=== PATIENT | female | born 1995 | race Caucasian/White ===

== ENCOUNTER 2016-10-07 03:21 | Emergency (ER) | payer OTHER ==
[2016-10-07 03:38] VITALS: BP 110/82
--- NOTE | 2016-10-07 04:03 | ERNOTE ---
Medical Problem HPI - Narrative Date of Service: 10/07/16 - General Chief Complaint: Chest Pain Time Seen by Provider: 10/07/16 03:49 Source: patient Exam Limitations: no limitations - Immun/Allergies/Home Medications Immunizations: IMMUNIZATION HX Immunizations Up to Date Yes History of Influenza Vaccine Yes Hx Pneumococcal Vaccination No Allergies/Adverse Reactions: Allergies amoxicillin trihydrate [From Augmentin] Allergy (Intermediate, Verified 03:39) Hives potassium clavula *RETIRED-04/26/13 [From Augmentin] Allergy (Intermediate, Verified 10/07/16 03:39) Hives Home Medications: HOME MEDICATIONS Acetaminophen [Tylenol] 1,000 mg PO 10/07/16 [Last Taken 10/07/16 00:00] Albuterol Sulfate [Proventil Hfa] 6.7 gm IH QID #1 [email or web address] 10/07/16 [Last Taken Unknown] Ibuprofen [Motrin] 800 mg PO 10/07/16 [Last Taken 10/07/16 00:00] - History of Present History Narrative: pt is a habitual marijuana user and smokes tobacco. Here for chest pains for one week. she had a pneumothorax two years ago. Has had a dry cough. Review of Systems - Review of Systems Constitutional: Present: no symptoms reported EYE: Present: no symptoms reported ENT: Present: no symptoms reported Respiratory: Present: See HPI Cardiology: Present: no symptoms reported Gastrointestinal/Abdominal: Present: no symptoms reported Genitourinary: Present: no symptoms reported Musculoskeletal: Present: no symptoms reported Skin: Present: no symptoms reported - Patient's Past Medical History Patient History - Medical: No pertinent hx, Anxiety, Depression Patient History - Cardiac/Respiratory: No pertinent hx Patient History - Cancer: No Hx of Cancer Patient History - Surgical Procedures: Pneumothorax - Social History Living Situations: home Smoking Status: Current every day smoker Alcohol Use: occasionally Drug Use: marijuana Physical Exam - Physical Exam General Appearance: Present: wd/wn, alert, no apparent distress - appears nervous Eye Exam: Normal inspection: bilateral, PERRL: bilateral, EOMI: bilateral Ears, Nose, Throat: Present: normal ENT inspection, hearing grossly normal Neck: Present: normal inspection, nontender, supple Respiratory: Present: no respiratory distress, normal breath sounds, no accessory muscle use, chest nontender, lungs clear Cardiovascular/Chest: Present: regular rate, rhythm, no murmur, normal peripheral pulses Neurological Exam: Present: alert, oriented - nervous ED Progress - Vital Signs Patient's Vital Signs:: I have reviewed the patient's vital signs. Vital Signs: Vital Signs 10/07/16 03:24 Temperature 36.5 C Pulse Rate 110 H Respiratory 20 Rate Blood Pressure 110/82 O2 Sat by Pulse 100 Oximetry - X-Ray X-Ray #1 X-Ray: chest - no pneumothorax noted - Progress/Reassessment Chief Complaint: Chest Pain Departure - Departure Clinical Impression: Cough Disposition: Home self-care Condition: Good Instructions: Cough, Pediatric Additional Instructions: STOP SMOKING POT AND CIGARETTES. Referrals: Velma Huitron MD [Primary Care Provider] - Prescriptions: Albuterol Sulfate [Proventil Hfa] 6.7 gm IH QID #1 [email or web address]
== END 2016-10-07 04:12 | disposition home or self-care (01) ==
LOC: ER 03:21
DX: R07.9 Chest pain, unspecified (principal); R05 Cough; F17.210 Nicotine dependence, cigarettes, uncomplicated

== ENCOUNTER 2016-12-01 11:40 | Emergency (ER) | payer OTHER ==
[2016-12-01 11:58] VITALS: BP 130/71
[2016-12-01] MEDS ORDERED: METOCLOPRAMIDE HCL 5 MG/ML VIAL IM ONE (12:11)
[2016-12-01] MEDS ORDERED: diphenhydrAMINE HCL 50 MG/ML VIAL IM ONE (12:11)
--- OUTSIDE RECORDS SUMMARY | 2016-12-01 12:19 | XMS REPORT | Continuity of Care Document ---
:1995 Demographics Address [address] [place] [address] Mobile Phone [phone] Preferred Language Unknown Marital Status Non- Druze Affiliation No Preference Race White Ethnic Group Non- Author Organization [facility] ([facility]) Address [address] [place] [address] Phone [phone] Care Team Providers Name Role Phone Velma Huitron Primary Care Provider [phone] Source Comments This disclosure is being made pursuant to the Care Everywhere program, applicable federal and state laws, and may not contain all informaitonavailable regarding this patient.[facility] ([facility]) Active Allergies and Adverse Reactions Allergen Noted Date Severity Reactions Comments Amoxicillin-Pot Clavulanate 12/16/2014 Urticaria (Hives) Current Medications Prescription Sig. Disp. Refills Start Date End Date Status acetaminophen 325 mg Take 2 Tabs by mouth 100 Tab 2 12/24/2014 Active tablet every 4 hours as needed. Indications: PAIN docusate 100 mg Take 1 Cap by mouth 60 Cap 2 12/24/2014 Active capsule 2 times daily. Indications: CONSTIPATION HYDROmorphone 2 mg Take 1-2 Tabs by 120 Tab 0 12/24/2014 Active tablet mouth every 3 hours as needed. Indications: PAIN sennosides 8.6 mg Take 1 Tab by mouth 60 Tab 2 12/24/2014 Active tablet 2 times daily. Indications: CONSTIPATION Active Problems Problem Noted Date History of pneumothorax 08/28/2016 Overview: spontaneous Smoking 08/28/2016 Overview: 12 PPD Request for sterilization 08/28/2016 Overview: Title XIX signed 08/28 Resolved Problems Problem Noted Date Resolved Date SOB (shortness of breath) 12/16/2014 08/28/2016 Spontaneous pneumothorax 12/16/2014 08/28/2016 Most Recent Encounters Date Type Specialty Providers Description 09/30/2016 Surgery Ambulatory Surgery Dajuan Pyle, Canceled SALPINGECTOMY, LAPAROSCOPIC 09/27/2016 Telephone Envelope Folder Jennyfer Mayer 09/27/2016 Anesthesia Event Ambulatory Surgery Madian Mann CRNA 09/05/2016 Office Visit Gynecology Dajuan Pyle, Chief Comp: Patient MD Reported Reason For Katya Leonard Visit Social History Tobacco Use Types Packs/Day Years Used Date Former Smoker Cigarettes 0.5 7 Quit: 12/11/2014 Tobacco Cessation:Counseling Given: Yes Comments: Alcohol Use Drinks/Week oz/Week Comments No Last Filed Vital Signs Vital Sign Reading Time Taken Blood Pressure 142/87 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 Pulse 93 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 Temperature 36.1 C (97 F) 01/11/2015 10:30 AM CDT Respiratory Rate 16 12/24/2014 9:54 AM CDT Height 1.676 m (5' 5.98") 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 Weight 57.7 kg (127 lb 3.3 oz) 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
[2016-12-01] MEDS ORDERED: diphenhydrAMINE HCL 50 MG/ML VIAL ONE (12:21)
[2016-12-01] MEDS ORDERED: METOCLOPRAMIDE HCL 5 MG/ML VIAL ONE (12:21)
--- NOTE | 2016-12-01 12:23 | ERNOTE ---
Head Injury HPI - Narrative Date of Service: 12/01/16 - General Time Seen by Provider: 12/01/16 11:59 - Immun/Allergies/Home Medications Immunization: IMMUNIZATION HX Immunizations Up to Date Yes History of Influenza Vaccine Yes Hx Pneumococcal Vaccination No Allergies/Adverse Reactions: Allergies Allergy/AdvReac Type Severity Reaction Status Date / Time amoxicillin trihydrate Allergy Intermediate Hives Verified 12/01/16 11:58 [From Augmentin] potassium clavula Allergy Intermediate Hives Verified 12/01/16 11:58 *RETIRED-04/26/13 [From Augmentin] Home Medications: HOME MEDICATIONS Acetaminophen [Tylenol] 1,000 mg PO Q6H 10/07/16 [Last Taken 10/07/16 00:00] Albuterol Sulfate [Proventil Hfa] 6.7 gm IH QID #1 [email or web address] 10/07/16 [Last Taken Unknown] Ibuprofen [Motrin] 800 mg PO Q6H 10/07/16 [Last Taken 10/07/16 00:00] - History of Present Illness Narrative: Pt. comes in after hitting her head on her metal stairs two hours ago. Pt. states that she has a headache and has a wound on her head that bled for 5 minutes after she washed her hair but resolved since. Pt. denies any SOB, CP, LOC, numbness, tingling, dizziness, blurred vision, double vision, vomiting, alleviating factors, or aggravating factors. Pt. states that she took Tylenol for her headache without relief. Review of Systems - Review of Systems Constitutional: Present: no symptoms reported. Absent: recent illness, fever, chills, fatigue, malaise EYE: Present: no symptoms reported ENT: Present: no symptoms reported Respiratory: Present: no symptoms reported. Absent: shortness of breath, cough , wheezing Cardiology: Present: no symptoms reported. Absent: chest pain, palpitations, edema Gastrointestinal/Abdominal: Present: nausea. Absent: vomiting, diarrhea, abdominal pain Genitourinary: Present: no symptoms reported Musculoskeletal: Present: no symptoms reported. Absent: back pain, neck pain, joint pain Skin: Present: other - abrasion top of head on R side Neurological: Present: headache. Absent: dizziness/light-headedness, weakness, numbness, tingling All Other Systems: All systems neg except as marked - Patient's Past Medical History Patient History - Medical: ADHD, Anxiety, Depression Patient History - Cardiac/Respiratory: No pertinent hx Patient History - Cancer: No Hx of Cancer Patient History - Surgical Procedures: Pneumothorax Patient History - Other: None - Social History Living Situations: home Abuse History: No History of abuse, Hx of Substance Use Psych History: Hx of Anxiety, Hx of Depression Smoking Status: Current every day smoker Have you smoked in the past 12 months: Yes Alcohol Use: occasionally Drug Use: marijuana - Immunizations Immunizations Up to Date: Yes Hx Pneumococcal Vaccination: No History of Influenza Vaccine: Yes Physical Exam - Physical Exam General Appearance: Present: wd/wn, alert, no apparent distress Eye Exam: Normal inspection: bilateral, PERRL: bilateral, EOMI: bilateral Ears, Nose, Throat: Present: normal ENT inspection Neck: Present: normal inspection, nontender. Absent: lymphadenopathy (R), lymphadenopathy (L), tender lateral, tender posterior midline Respiratory: Present: no respiratory distress, normal breath sounds, no accessory muscle use, chest nontender, lungs clear Cardiovascular/Chest: Present: regular rate, rhythm, no murmur, normal peripheral pulses Gastrointestinal/Abdominal: Present: normal bowel sounds, nontender, nondistended, soft, no organomegaly Back Exam: Present: normal inspection, normal range of motion, no vertebral tenderness Extremity Exam: Present: normal inspection, non-tender, normal range of motion, no edema Neurological Exam: Present: alert, oriented, normal mood/affect, no motor/ sensory deficits, behavioral health worker II-XII nml as tested, normal cerebellar test Skin Exam: Present: normal color, warm/dry, other - abrasion superficial closed 1cm in length x 0.3cm no active bleeding but with scab, no closure needed. Absent: pallor, skin rash ED Progress - Date and Time Seen: Date and Time: 12/01/16 12:14 Do not feel that imaging is necessary at this time as pt. had no LOC, has mild symptoms, denies any vomiting or vision changes at this time. - Vital Signs Patient's Vital Signs:: I have reviewed the patient's vital signs. Vital Signs: Vital Signs 12/01/16 11:54 Temperature 36.9 C Pulse Rate 91 Respiratory 12 Rate Blood Pressure 130/71 O2 Sat by Pulse 100 Oximetry - Progress/Reassessment Chief Complaint: Head Injury Departure Clinical Impression: Abrasion Head injury, acute Qualifiers: Encounter type: initial encounter Qualified Code(s): S09.90XA - Unspecified injury of head, initial encounter - Departure Disposition: Home self-care Condition: Good Instructions: Abrasion, [id number], Head Injury, Adult, Dung-ty-Wnor Additional Instructions: Please return to ER if you develop vomiting, dizziness, or weakness. Please follow up with primary provider in 2-3 days. Please apply neosporin to wound twice a day. Referrals: Velma Huitron MD [Primary Care Provider] -
== END 2016-12-01 12:28 | disposition home or self-care (01) ==
LOC: ER 11:40
DX: S00.91XA Abrasion of unspecified part of head, initial encounter (principal); X58.XXXA Exposure to other specified factors, initial encounter; Y92.009 Unspecified place in unspecified non-institutional (private) residence as the place of occurrence of the external cause; Y99.9 Unspecified external cause status; S09.90XA Unspecified injury of head, initial encounter; Z72.0 Tobacco use

== ENCOUNTER 2018-06-18 06:07 | Inpatient (IN) ==
[2018-06-18] MEDS ORDERED: DEXTROSE 5%-LACTATED RINGERS 1,000 ML IV PRN (06:21)
[2018-06-18] MEDS ORDERED: ONDANSETRON HCL/PF 2 MG/ML VIAL IV PRN ×2 (06:21→11:12)
[2018-06-18] MEDS ORDERED: RINGER'S SOLUTION,LACTATED 1,000 ML IV ONE (06:21)
[2018-06-18] MEDS ORDERED: OXYTOCIN 30 UNITS in NORMAL SALINE 500 ML IV ONE ×2 (06:21→13:33)
[2018-06-18] MEDS ORDERED: CLINDAMYCIN PHOSPHATE 900 MG in DEXTROSE 5 % IN WATER 100 ML IV SCH ×4 (06:41→14:21)
[2018-06-18 07:41] LABS: Cocaine Ur Negative (NEGATIVE); Urine Barbiturate Negative (NEGATIVE); Urine Benzodiazepines Negative (NEGATIVE); Urine Opiates Negative (NEGATIVE); Urine PCP Negative (NEGATIVE); Urine THC Negative (NEGATIVE)
--- NOTE | 2018-06-18 09:04 | HP ---
Chief Complaint - Chief Complaint Date of Service: 06/18/18 Time of Service: 09:04 Chief Complaint: Elective induction of labor History of Present Illness: 23 yo at 40wks presents for elective induction of labor. This complicated by bipoloar d/o, smoker, THC use, anemia, h/o preeclampsia. Rh positive Rubellla immune GBS positive. PCN allergy- Clindamycin receptive. Medical History (Last Reviewed 06/18/18 @ 10:08 by Wily Ying DO) Anger Anxiety Attention deficit disorder of adult with hyperactivity Onset Date: 12/31/12 Bipolar affective disorder, current episode depressed Body piercing Cough Onset Date: 09/23/12 Depression Hepatitis B Learning disability Scoliosis Tattoos Infection, kidney Anemia Onset Date: 10/15/12 Back spasm Onset Date: 03/27/17 Cervical dysplasia Onset Date: 06/12/15 Migraine Ovarian cyst Onset Date: ~2008 Pneumothorax Onset Date: 12/09/14 Pre-eclampsia Onset Date: 01/05/16 Family History: Family History (Last Reviewed 06/18/18 @ 10:09 by Wily Ying DO) Mother Arthritis COPD (chronic obstructive pulmonary disease) Depression Hypertension Grandmother Asthma COPD (chronic obstructive pulmonary disease) Diabetes Emphysema, unspecified Hypertension Parkinson disease Aunt Hypertension Lupus Parkinson disease Father Scoliosis Social History: Preferred Language Nepali Do you have any sabianism or No cultural preference? Abuse History No History of abuse,Hx of Substance Use Psych History Hx of Anxiety,Hx of Depression Review Of Systems (GEN) - Review of Systems Generalized/Overall Review: Present: No Symptoms Reported EENTM: Present: No Symptoms Reported Respiratory: Present: No Symptoms Reported Cardiac: Present: No Symptoms Reported Abdominal: Present: No Symptoms Reported Genitourinary: Present: Other - occassional contractions Musculoskeletal: Present: No Symptoms Reported Neurological: Present: No Symptoms Reported Skin: Present: No Symptoms Reported Endocrine: Present: No Symptoms Reported Immunizations: IMMUNIZATION HX Immunizations Up to Date Yes History of Influenza Vaccine Yes Hx Pneumococcal Vaccination No Allergies/Adverse Reactions: Allergies Allergy/AdvReac Type Severity Reaction Status Date / Time amoxicillin trihydrate Allergy Intermediate Hives Verified 06/16/18 09:46 [From Augmentin] potassium clavula Allergy Intermediate Hives Verified 06/16/18 09:46 *RETIRED-04/26/13 [From Augmentin] amoxicillin [From Augmentin] AdvReac Mild Hives Verified 06/16/18 09:46 clavulanic acid AdvReac Mild Hives Verified 06/16/18 09:46 [From Augmentin] Home Medications: HOME MEDICATIONS ferrous sulfate 325 mg (65 mg iron) tablet,delayed release 325 mg PO DAILY tab 03/25/18 [Last Taken 2 Days Ago ~06/16/18] vitamin,calcium,pduhjrob-fjpb-vbfvb acid tablet 1 tab PO DAILY [Last Taken 2 Days Ago ~06/16/18] Exam - Exam Vital Signs: Vital Signs - Last Taken Temp 36.9 C 06/18/18 07:15 Pulse 92 06/18/18 07:15 Resp 17 06/18/18 07:16 BP 124/79 06/18/18 07:15 Constitutional: Present: Alert, Oriented x3, Cooperative, No distress ENT Exam: Present: hearing grossly normal Respiratory: Present: lungs clear, no respiratory distress Cardiovascular/Chest: Present: normal peripheral pulses, regular rate, rhythm, no edema Abdomen: Present: soft, nontender, other - gravid /Rectal: Present: Other - cvx 3/50/-2 Extremity: Present: normal range of motion, non-tender, no pedal edema, no calf tenderness Skin Exam: Present: normal color, warm/dry, no cyanosis Lymphatic: Present: no adenopathy Neurologic: Present: alert, normal mood/affect, oriented x 3 Appearance: Present: appropriate appearance, appropriate insight Eye contact: Present: cooperative, good eye contact Thoughts: Present: normal thought pattern Diagnostic Studies: Laboratory Results Urine Opiates Screen Negative (NEGATIVE) 06/18/18 07:10 Barbiturate Screen Negative (NEGATIVE) 06/18/18 07:10 Ur Phencyclidine Scrn Negative (NEGATIVE) 06/18/18 07:10 Urine Amphetamine Negative (NEGATIVE) 06/18/18 07:10 U Benzodiazepines Scrn Negative (NEGATIVE) 06/18/18 07:10 Urine Cocaine Screen Negative (NEGATIVE) 06/18/18 07:10 Urine Marijuana (THC) Negative (NEGATIVE) 06/18/18 07:10 Assessment/Plan - Assessment/Plan (1) Elective induction of labor planned Assessment: Admit for pitocin induction of labor. Clindamycin per GBS protocol. Epidural PRN. Problem: Acute (2) GBS (group B Streptococcus carrier), +RV culture, currently Problem: Acute
--- NOTE | 2018-06-18 09:05 | PN ---
Progess Note - Interim Date: 06/18/18 Time: 09:04 Narrative: 06/18/18 09:04 Patient becoming more uncomfortable with contractions Vital signs stable. Pitocin at 3 mu/min. FHT: 140 baseline, reassuring Contractions q 2-3 min Cervix: 4/75/-2 Impression: Intrauterine at 40 weeks elective induction of labor. GBS positive carrier - status post 1 dose of clindamycin. Plan: Continue present plan
[2018-06-18] MEDS ORDERED: NALOXONE HCL 1 MG/1 ML SYRG IV PRN (11:12)
[2018-06-18] MEDS ORDERED: BUPIVACAINE HCL/0.9 % NACL/PF 250 ML EP PRN (11:12)
[2018-06-18] MEDS ORDERED: fentaNYL CITRATE/PF 50 MCG/ML AMPUL IT SCH (11:15)
--- NOTE | 2018-06-18 11:16 | ANES ---
Anesthesia Pre Procedure Eval Vitals/Labs: Last Vital Signs Temp 36.9 C 06/18/18 07:15 Pulse 92 06/18/18 07:15 Resp 17 06/18/18 07:16 BP 124/79 06/18/18 07:15 HOME MEDICATIONS ferrous sulfate 325 mg (65 mg iron) tablet,delayed release 325 mg PO DAILY tab 03/25/18 [Last Taken 2 Days Ago ~06/16/18] vitamin,calcium,mjfpqvcn-mlvs-zcgwv acid tablet 1 tab PO DAILY [Last Taken 2 Days Ago ~06/16/18] Allergies/Adverse Reactions: Allergies Allergy/AdvReac Type Severity Reaction Status Date / Time amoxicillin trihydrate Allergy Intermediate Hives Verified 06/16/18 09:46 [From Augmentin] potassium clavula Allergy Intermediate Hives Verified 06/16/18 09:46 *RETIRED-04/26/13 [From Augmentin] amoxicillin [From Augmentin] AdvReac Mild Hives Verified 06/16/18 09:46 clavulanic acid AdvReac Mild Hives Verified 06/16/18 09:46 [From Augmentin] - Planned Procedure Planned Procedure: ELECTIVE INDUCTION 0600 Medication List Reviewed:: Yes Allergies Verified: Yes Medical History (Last Reviewed 06/18/18 @ 11:15 by Jimi Ledesma CRNA) Anger Anxiety Attention deficit disorder of adult with hyperactivity Onset Date: 12/31/12 Bipolar affective disorder, current episode depressed Body piercing Cough Onset Date: 09/23/12 Depression Hepatitis B Learning disability Scoliosis Tattoos Infection, kidney Anemia Onset Date: 10/15/12 Back spasm Onset Date: 03/27/17 Cervical dysplasia Onset Date: 06/12/15 Migraine Ovarian cyst Onset Date: ~2008 Pneumothorax Onset Date: 12/09/14 Pre-eclampsia Onset Date: 01/05/16 Family History (Last Reviewed 06/18/18 @ 11:15 by Jimi Ledesma CRNA) Mother Arthritis COPD (chronic obstructive pulmonary disease) Depression Hypertension Grandmother Asthma COPD (chronic obstructive pulmonary disease) Diabetes Emphysema, unspecified Hypertension Parkinson disease Aunt Hypertension Lupus Parkinson disease Father Scoliosis - Family Anesthesia History Family History:: no untoward family reactions to anesthesia, no familial bleeding tendencies, no family history of clotting disorders, no family history of premature - Airway/Neck/Teeth Within Normal Limits:: Yes Teeth Condition: Intact Neck Exam: non-tender, full range of motion Mallampatti Score: 2 Thyromental (T-M) distance: > 6 cm Mandibulo Hyoid distance: > 3 cm - Respiratory Respiratory: chest non-tender, lungs clear Sleep Apnea currently treated: No Sleep Apnea by current assessment: No - Cardiovascular Patient History - Cardiac/Respiratory: No pertinent hx Tolerates Activity: Fair Heart Sounds: S1 & S2, Regular - Anesthesia Assessment and Plan ASA Class: PS, II, E Anesthesia Type Plan: Epidural - CSE for labor analgesia Planned difficult intubation/equipment available: No
--- NOTE | 2018-06-18 11:31 | ANES ---
Post Anesthesia Discharge - Transfer of Care Transfer of Care handoff given to nurse: Yes - Discharge from PACU Discharge from PACU when meets criteria: Yes - Comfortable at this point
--- NOTE | 2018-06-18 11:32 | ANES ---
Anesthesia Procedure Note Procedure Note: ANESTHESIA PROCEDURE NOTE Date of Procedure: The 04/10/2018 Time of procedure: 11:15. Performed by: CONNOR Hicks CRNA, MSN Cook Short Order: Adwoa Brown RN. Preprocedure diagnosis: Active labor, labor pain. Post procedure diagnosis: Same. Procedure:Epidural for labor analgesia L3 4. Indications: Labor pain. Findings: See below. Details of the procedure: The patient was placed on the side of the bed in sitting positionand prepped with DuraPrep then draped in a sterile fashion. Lidocaine 1% was infiltrated to the skin and subcutaneous tissues at the level of the L3 4 interspace. An 18-gauge Touhy needle was used to approach the epidural space with loss of resistance technique. Once loss of resistance was achieved a 27-gauge spinal needle was passed through the epidural needle and CSF was contacted. After CSF returned, 20 mcg of fentanyl was injected in the spinal needle was removed the epidural catheter was then threaded approximately 4 cm in the epidural needle was removed. The catheter was taped in place and after careful aspiration 3 mL of 1.5% lidocaine with 1-200,000 epinephrine was injected without change in maternal heart rate or sensorium. . EBL: Minimal. Fluids: N/A. Specimen: N/A. Post procedure condition: The patient tolerated the procedure well with good relief. No complications were noted. Thank you for this consultation. Jimi Ledesma CRNA, ARNP, MSN
--- NOTE | 2018-06-18 12:05 | PN ---
Progess Note - Interim Date: 06/18/18 Time: 12:04 Narrative: 06/18/18 12:04 Comfortable with epidural AROM clear fluid Cvx 5/90/-2 FHT reassuring Continue induction of labor. Anticipate in next 3-4 hours.
--- NOTE | 2018-06-18 12:45 | ANES ---
Post Anesthesia Assessment - Vital Signs Vitals: Last Vital Signs Temp 36.9 C 06/18/18 07:15 Pulse 92 06/18/18 07:15 Resp 17 06/18/18 07:16 BP 124/79 06/18/18 07:15 Airway Patency: Normal - Mental Status Level Of Consciousness: Awake, Alert, Appropriate - Pain Level Pain Score: 1 - N/V Assessment Nausea/Vomiting Presence: None Dehydration:: No
[2018-06-18] MEDS ORDERED: BENZOCAINE/MENTHOL 81 SPRAY CAN TP PRN (13:33)
[2018-06-18] MEDS ORDERED: GLYCERIN/WITCH HAZEL LEAF 40 APPL BOX TP PRN (13:33)
[2018-06-18] MEDS ORDERED: oxyCODONE HCL/ACETAMINOPHEN 1 TAB TABLET PO PRN (13:33)
[2018-06-18] MEDS ORDERED: SENNOSIDES 8.6 MG TABLET PO PRN (13:33)
[2018-06-18] MEDS ORDERED: BISACODYL 10 MG SUPP.RECT RC PRN (13:33)
[2018-06-18] MEDS ORDERED: HYDROCORTISONE 30 APPL TUBE TP PRN (13:33)
--- NOTE | 2018-06-18 13:34 | OR ---
Operative Report - Dictated Report Narrative: Spontaneous vaginal delivery of viable female at 1317 on 03/18/2018 with Apgars 8 and 9 weighing 2915 g in ANGELA position with tight nuchal cord 1. Cord clamping delayed approximately 1 minute Placenta delivered complete, intact, with three vessel cord Estimated blood loss: less than 50 ml Anesthesia: epidural Lacerations: None
[2018-06-18] MEDS: oxyCODONE HCL/ACETAMINOPHEN 1 TAB TABLET PO PRN ×3 (14:31→23:27)
[2018-06-18] MEDS: IBUPROFEN 800 MG TABLET PO PRN ×2 (16:19→23:28)
--- NOTE | 2018-06-18 18:11 | PN ---
Progess Note - Interim Date: 06/18/18 Time: 18:11 History for MU Definition: * The number of deliveries resulting in a live the patient experienced prior to current hospitalization * The previous delivery of live twins or any live multiple gestation is considered one live event. *If primagravida or nulliparous is documented select zero for the number of previous live births. Live Events: 2
[2018-06-18] MEDS: DOCUSATE SODIUM 100 MG CAPSULE PO SCH (21:29)
[2018-06-19] MEDS: oxyCODONE HCL/ACETAMINOPHEN 1 TAB TABLET PO PRN ×4 (07:07→23:59)
[2018-06-19] MEDS: IBUPROFEN 800 MG TABLET PO PRN ×3 (07:09→23:59)
[2018-06-19] MEDS: DOCUSATE SODIUM 100 MG CAPSULE PO SCH ×2 (08:09→20:41)
--- NOTE | 2018-06-19 11:55 | PN ---
Subjective - Date and Time Seen Date: 06/19/18 Time: 11:53 Objective - Vitals Vitals: Last Vital Signs Temp 36.7 C 06/19/18 07:17 Pulse 84 06/19/18 07:17 Resp 16 06/19/18 07:17 BP 117/79 06/19/18 07:17 Pulse Ox 96 06/19/18 07:17 Patient denies complaints. Bottle feeding. Lochia wnl Abdomen - soft, nontender Uterus - firm, at umbilicus - 1 No calf tenderness Impression: day #1 - s/p spontaneous vaginal delivery. Bipolar disorder-stable. Plan: Continue routine care Assessment/Plan - Problems/Diagnosis (1) Elective induction of labor planned Problem: Acute (2) GBS (group B Streptococcus carrier), +RV culture, currently Problem: Acute
[2018-06-20] MEDS: DOCUSATE SODIUM 100 MG CAPSULE PO SCH (09:58)
[2018-06-20] MEDS: IBUPROFEN 800 MG TABLET PO PRN (10:00)
[2018-06-20 10:33] VITALS: BP 121/77
--- NOTE | 2018-06-20 11:02 | PN ---
Subjective - Date and Time Seen Date: 06/20/18 Time: 11:01 Objective - Vitals Vitals: Last Vital Signs Temp 36.7 C 06/20/18 10:00 Pulse 77 06/20/18 10:00 Resp 18 06/20/18 10:00 BP 121/77 06/20/18 10:00 Pulse Ox 95 06/20/18 10:00 Patient denies complaints. Bottle feeding Lochia wnl Abdomen - soft, nontender Uterus - firm, at umbilicus - 2 No calf tenderness Impression: day #2 - s/p spontaneous vaginal delivery. Plan: Routine discharge instructions Assessment/Plan - Problems/Diagnosis (1) Elective induction of labor planned Problem: Acute (2) GBS (group B Streptococcus carrier), +RV culture, currently Problem: Acute
== END 2018-06-20 15:30 | disposition home or self-care (01) | DRG 775 ==
LOC: OB 06:07
PROVIDERS: ADMIT Obstetrics & Gynecology; ATTEND Obstetrics & Gynecology
CPT/HCPCS: 59025; 80307; G0479